=== PATIENT | female | born 2000 | race Native Hawaiian/Other Pacific Islander ===

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

== ENCOUNTER 2022-07-12 20:23 | Emergency (ER) | payer OTHER, BC ==
[~2022-07-12] VITALS: Ht 162.6 cm; Wt 61.2 kg
[2022-07-12] MEDS ORDERED: TRI LO MARZIA PO (22:12)
[2022-07-12 22:23] VITALS: BP 121/68; TEMP 97.8
== END 2022-07-12 22:23 | disposition home or self-care (01) ==
LOC: ED 20:23
PROC: 0HQ1XZZ Repair Face Skin, External Approach (ICD-10-PCS; principal; 2022-07-12)
PROC: 08D Eye, Extraction (ICD-10-PCS; 2022-07-12)
DX: S00.83XA Contusion of other part of head, initial encounter (principal); S01.81XA Laceration without foreign body of other part of head, initial encounter; T15.01XA Foreign body in cornea, right eye, initial encounter; V40.5XXA Car driver injured in collision with pedestrian or animal in traffic accident, initial encounter; Y92.410 Unspecified street and highway as the place of occurrence of the external cause
CPT/HCPCS: 81025; 99283